=== PATIENT | female | born 1945 | race Caucasian/White ===

== ENCOUNTER 2016-05-17 18:47 | Emergency (ER) | payer OTHER ==
[2016-05-17 18:59] VITALS: BP 0/0; PULSE 0; BMI 15.9
[2016-05-17 20:07] VITALS: TEMP 95.8
--- NOTE | 2016-05-17 21:00 | PDOC ---
History of Present Illness <Daja Campbell - Last Filed: 05/17/16 21:58> <Deanna Buck - Last Filed: 05/19/16 02:25> - General Chief Complaint: Cardiac Arrest Stated Complaint: CARDIAC ARREST Time Seen by Provider: 05/17/16 19:22 - History of Present Illness Initial Comments: 05/17/16 21:58 Patient is a 71 year old female with significant medical hx of lung CA, HTN, CAD s/p VA (2009), catheterization, and HLD who has been brought to the ED via EMS in asystole after a witnessed arrest one hour [employer]. The patient has been in asystole since; her pupils are fixed and dilated. The patient does not have any lung sounds or heart beat. Extremities are cool. The patient was pronounced at 18:41. (Daja Campbell) Past History <Daja Campbell - Last Filed: 05/17/16 21:58> - Past Medical History Anemia: Yes Cancer: Yes (lung) Cardiac Disorders: Yes ([facility] 2009, CAD, cath,) CVA: No Dementia: No Diabetes: No GI Disorders: No Disorders: No HTN: Yes Hypercholesterolemia: Yes Liver Disease: No Suicide Attempt (Hx): No Seizures: Yes (2 years ago) Thyroid Disease: No - Surgical History Abdominal Surgery: Yes Appendectomy: No Cardiac Surgery: (ANGIOPLASTY) Cholecystectomy: No Lung Surgery: No Neurologic Surgery: No - Immunization History Immunization Up to Date: Yes - Psycho/Social/Smoking Cessation Hx Anxiety: No Suicidal Ideation: No Smoking Status: No Smoking History: Unknown if ever smoked Have you smoked in the past 12 months: No Number of Cigarettes Smoked Daily: 0 If you are a former smoker, when did you quit?: 30 years ago Information on smoking cessation initiated: No Hx Alcohol Use: No Drug/Substance Use Hx: No Substance Use Type: None Hx Substance Use Treatment: No <Deanna Buck - Last Filed: 05/19/16 02:25> - Past Medical History Allergies/Adverse Reactions: Allergies Allergy/AdvReac Type Severity Reaction Status Date / Time No Known Allergies Allergy Verified 05/17/16 18:59 Home Medications: Ambulatory Orders Pantoprazole Sodium [Protonix -] 40 mg PO DAILY #60 tablet.ec 10/22/14 Methadone [Dolophine -] 140 mg PO DAILY@0600 #30 tablet 02/09/15 Acetaminophen [Tylenol .Regular Strength -] 650 mg PO Q6H PRN #0 tablet Alprazolam [Xanax] 0.5 mg PO TID PRN #60 tablet MDD 3 10/12/15 Budesonide/Formeterol Fumarate [SYMBICORT 160/4.5mcg -] 2 puff IH BID #1 inhaler 10/12/15 Magnesium Chloride [Slow-Mag -] 128 mg PO DAILY #30 tablet.sa 10/12/15 Tiotropium Campbell [Spiriva] 1 puff IH DAILY #1 inh 10/12/15 Albuterol 0.083% Nebulizer Roseline [Ventolin 0.083% Nebulizer Soln -] 1 amp NEB Q4H PRN #0 amp 03/01/16 Aspirin [ASA -] 81 mg PO DAILY tab.chew 03/01/16 Guaifenesin [Robitussin -] 10 ml PO Q6H PRN #0 cup 03/01/16 Levofloxacin [Levaquin -] 500 mg PO DAILY #7 tablet 03/01/16 Prednisone [Deltasone -] 20 mg PO DAILY #30 tablet 03/01/16 Cardiac Specific PMH - Complaint Specific PMHX Pacemaker: No <Deanna Buck - Last Filed: 05/19/16 02:25> Review of Systems <Daja Campbell - Last Filed: 05/17/16 21:58> <Deanna Buck - Last Filed: 05/19/16 02:25> - Review of Systems Comments:: 05/17/16 21:58 Unable to assess. (Daja Campbell) *Physical Exam <Daja Campbell - Last Filed: 05/17/16 21:58> <Deanna Buck - Last Filed: 05/19/16 02:25> - Vital Signs Last Vital Signs Temp Pulse Resp BP Pulse Ox 95.8 F L 0 L 0 L 0/0 0 L 05/17/16 19:00 05/17/16 18:50 05/17/16 18:50 05/17/16 18:50 05/17/16 18:50 - Physical Exam Comments: 05/17/16 21:58 GENERAL: Non-responsive. HEENT: Normocephalic. Pupils are fixed and dilated. Intubated with a 6.5 ET tube. CARDIOVASCULAR: No heart sounds. PULMONARY: No lung sounds. 14 gauge needle in the 2nd intercostal space. ABDOMINAL: Soft. Non-distended. No rebound or guarding. No organomegaly. EXTREMITIES: Extremities were cool. Swollen right leg. SKIN: Warm and dry. No rashes. No jaundice. NEUROLOGICAL: Non-responsive. Unable to assess. (Daja Campbell) ED Treatment Course - Consult/PCP Time Called: 19:45 Case discussed with personal care physician: Angelic Gerardo <Daja Campbell - Last Filed: 05/17/16 21:58> Medical Decision Making <Daja Campbell - Last Filed: 05/17/16 21:58> <Deanna Buck - Last Filed: 05/19/16 02:25> - Medical Decision Making 05/19/16 02:22 71-year-old female had a witnessed arrest at home and CPR was started immediately. Paramedics arrived shortly thereafter and continued CPR started. ACLS protocol. She was intubated at the scene and was found to be asystolic. She received epi 7 with continued CPR, but remained asystolic. Sister states that the patient had been having increased coughing over the last few days. Patient was being treated for lung cancer. Because she remained asystolic for more than 45 minutes. Resuscitation to measures were stopped at 1848 and She was pronounced Her case was declined by the medical liaison. Her primary care physician, Dr. Angelic Sharpe agreed to sign the certificate. Her sister was bedside. (Deanna Buck) *DC/Admit/Observation/Transfer <Daja Campbell - Last Filed: 05/17/16 21:58> <Deanna Buck - Last Filed: 05/19/16 02:25> Diagnosis at time of Disposition: Cardiac arrest Lung cancer Qualifiers: Laterality: unspecified laterality Lung location: unspecified part of lung Qualified Code(s): C34.90 - Malignant neoplasm of unspecified part of unspecified bronchus or lung - Discharge Dispostion Disposition: - Referrals Referrals: Melchor Montalvo MD [Primary Care Provider] - - Attestations Scribe Attestion: 05/17/16 22:04 Documentation prepared by Daja Campbell, acting as medical center representative for Deanna Buck MD. (Daja Campbell)
== END 2016-05-17 21:22 | disposition expired ==
LOC: JER 18:47
PROC: 5A12012 Performance of Cardiac Output, Single, Manual (ICD-10-PCS; principal; 2016-05-17)
DX: I46.9 Cardiac arrest, cause unspecified (principal); C34.90 Malignant neoplasm of unspecified part of unspecified bronchus or lung; I25.10 Atherosclerotic heart disease of native coronary artery without angina pectoris; Z98.61 Coronary angioplasty status; I10 Essential (primary) hypertension; I25.2 Old myocardial infarction; E78.00 Pure hypercholesterolemia, unspecified; Z86.69 Personal history of other diseases of the nervous system and sense organs
CPT/HCPCS: 92950; 99284-25